=== PATIENT | female | born 1955 | race Caucasian/White ===

== ENCOUNTER 2022-09-03 07:22 | Outpatient (CLI) | payer MEDICARE, OTHER ==
[2022-09-03 15:15] LABS: ALBUMIN/GLOBULIN RATIO 1.3 (1.0-2.2); BILIRUBIN,TOTAL 0.4 mg/dL (0.2-1.0); CALCIUM 9.4 mg/dL (8.5-10.3); CREATININE 0.6 mg/dL (0.4-1.0); POTASSIUM 3.9 mmol/L (3.5-5.0)
[2022-09-03 21:23] LABS: ESTIMATED AVERAGE GLUCOSE 143 mg/dL (70-100); HEMOGLOBIN A1c% 6.6 % (4.27-6.07)
== END 2022-09-03 07:23 | disposition home or self-care (01) ==
LOC: LAB.S 07:22
PROVIDERS: ATTEND Nurse Practitioner
DX: E13.65 Other specified diabetes mellitus with hyperglycemia (principal); E13.59 Other specified diabetes mellitus with other circulatory complications; I15.2 Hypertension secondary to endocrine disorders; Z79.4 Long term (current) use of insulin
CPT/HCPCS: 36415; 80053; 83036

== ENCOUNTER 2022-12-11 07:19 | Outpatient (CLI) | payer MEDICARE, OTHER ==
[2022-12-11 15:37] LABS: ALBUMIN 4.1 g/dL (3.2-5.5); ALBUMIN/GLOBULIN RATIO 1.5 (1.0-2.2); BILIRUBIN,TOTAL 0.6 mg/dL (0.2-1.0); CALCIUM 9.6 mg/dL (8.5-10.3); CREATININE 0.6 mg/dL (0.6-1.3); POTASSIUM 4.1 mmol/L (3.5-4.5); TOTAL PROTEIN 6.8 g/dL (6.4-8.9)
[2022-12-11 21:31] LABS: ESTIMATED AVERAGE GLUCOSE 160 mg/dL (70-100); HEMOGLOBIN A1c% 7.2 % (4.27-6.07)
== END 2022-12-11 07:20 | disposition home or self-care (01) ==
LOC: LAB.S 07:19
PROVIDERS: ATTEND Internal Medicine Endocrinology, Diabetes & Metabolism
DX: E03.9 Hypothyroidism, unspecified (principal); E13.65 Other specified diabetes mellitus with hyperglycemia; Z79.4 Long term (current) use of insulin
CPT/HCPCS: 36415; 80053; 83036; 84439; 84443

== ENCOUNTER 2022-12-24 13:07 | Outpatient (CLI) | payer MEDICARE, OTHER ==
--- NOTE | 2023-01-01 09:36 | Mammography Report ---
BILATERAL DIGITAL SCREENING MAMMOGRAM 3D/2D: 12/24/2022 CLINICAL: Routine screening. No prior exams were available for comparison. There are scattered areas of fibroglandular density in both breasts (category b / 25%-50% glandular t issue). There are benign calcifications in both breasts. No significant masses, calcifications, or other findings are seen in either breast. IMPRESSION: BENIGN There is no mammographic evidence of malignancy. A 1 year screening mammogram is recommended. Based on the Tyrer Cuzick model (a risk assessment model) the patients lifetime risk is 6.5% and her 10 year risk is 3.4%. According to the ACR, ACS, and NCCN guidelines, an annual breast MRI exam elle g with mammogram is recommended if the patients lifetime risk is 20% or greater. This exam was interpreted at Station ID: [id number]. NOTE: For mammograms, a report in lay terms will be sent to the patient. Approximately 15% of breast malignancies will not be visualized mammographically. In the management of a palpable breast mass, a negative mammogram must not discourage biopsy of a clinically suspicious lesion. Electronically Signed By: Izabella blanco/taiwo:01/01/2023 09:29:56 letter sent: No_Letter ACR BI-RADS Category 2: Benign Finding(s) 3342F PARENCHYMAL PATTERN: (A) - The breast(s) demonstrate(s) scattered fibroglandular densities. BI-RADS CATEGORY: (2) - 2 Mammogram [id number] 1 year screening LATERALITY: (B)
== END 2022-12-24 13:08 | disposition home or self-care (01) ==
LOC: DI.S 13:07
PROVIDERS: ATTEND Internal Medicine
DX: Z12.31 Encounter for screening mammogram for malignant neoplasm of breast (principal)

== ENCOUNTER 2023-01-23 11:53 | Outpatient (CLI) | payer MEDICARE, OTHER ==
--- NOTE | 2023-01-23 14:29 | MRI Report ---
PROCEDURE: IAC'S W/WO INDICATIONS: CHANGE IN HEARING, BELLS PALSY CONTRAST: gadavist 10.7ml TECHNIQUE: Noncontrast sagittal T1 spin echo, axial FLAIR, axial gradient echo, axial diffusion and ADC through the brain. Axial thin-slice 3D CISS, coronal balanced GE, axial T1 spin echo with fat saturation thr ough the internal auditory canals. After the administration of contrast, thin slice axial and navarro l T1 spin echo with fat saturation through the internal auditory canals, and axial T1 spin echo with fat saturation through the brain. COMPARISON: None. FINDINGS: Image quality: Excellent. Cerebellopontine angles: In this patient with this given history, scrutiny is given to the courses of the facial nerves running within the parotid glands. This study, now masses or abnormal enhancement can be seen involving the facial nerves, including within the parotid glands. No masses or abnormal enhancement involving the internal auditory canals or the cerebellopontine angl e cisterns. CSF spaces: Ventricles are normal in size and shape. No extra-axial fluid collections. Basal ciste rns are patent. Brain: No intracranial bleeds or mass effects. Ortiz-white matter interface is intact. No abnormal intracranial enhancement. Diffusion weighted images demonstrate no acute ischemic insults. Brainste m appears normal. Normal intravascular flow voids are present. Skull and face: Calvarial marrow signal is normal. Orbits appear normal. Sinuses: Sinuses and mastoids are clear. IMPRESSION: No imaging explanation is found for the patient's presenting symptoms. No masses or abnormal enhancement can be seen. No findings of acute or subacute infarction are seen. Reviewed by: Eusebio Centeno MD on 01/23/2023 1:27 PM SKYLAR Approved by: Eusebio Centeno MD on 01/23/2023 1:27 PM SKYLAR Station ID: [id number]
== END 2023-01-23 11:54 | disposition home or self-care (01) ==
LOC: DI 11:53
PROVIDERS: ATTEND Internal Medicine
DX: R26.89 Other abnormalities of gait and mobility (principal); H91.91 Unspecified hearing loss, right ear; G51.0 Bell's palsy; E03.9 Hypothyroidism, unspecified; E13.65 Other specified diabetes mellitus with hyperglycemia; Z79.4 Long term (current) use of insulin
CPT/HCPCS: 36415; 70553; 80053; 83036; 84439; 84443; A9585

== ENCOUNTER 2023-01-23 11:54 | Outpatient (CLI) | payer MEDICARE, OTHER ==
[2023-01-23 12:27] LABS: ALBUMIN 4.3 g/dL (3.2-5.5); ALBUMIN/GLOBULIN RATIO 1.7 (1.0-2.2); BILIRUBIN,TOTAL 0.6 mg/dL (0.2-1.0); CALCIUM 10.1 mg/dL (8.5-10.3); CREATININE 0.6 mg/dL (0.6-1.3); POTASSIUM 4.1 mmol/L (3.5-4.5); TOTAL PROTEIN 6.9 g/dL (6.4-8.9)
[2023-01-23 12:57] LABS: ESTIMATED AVERAGE GLUCOSE 151 mg/dL (70-100); HEMOGLOBIN A1c% 6.9 % (4.27-6.07)
[2023-01-23 13:52] LABS: THYROID STIMULATING HORMONE 1.03 uIU/mL (0.34-5.60)
== END 2023-01-23 11:55 | disposition home or self-care (01) ==
LOC: LAB 11:54
PROVIDERS: ATTEND Internal Medicine Endocrinology, Diabetes & Metabolism
DX: E03.9 Hypothyroidism, unspecified (principal); E13.65 Other specified diabetes mellitus with hyperglycemia; Z79.4 Long term (current) use of insulin
CPT/HCPCS: 36415; 80053; 83036; 84439; 84443

== ENCOUNTER 2023-03-05 08:00 | Outpatient (CLI) | payer MEDICARE, OTHER ==
--- NOTE | 2023-03-05 17:58 | XRAY Report ---
PROCEDURE: Lumbar Spine 2 View INDICATIONS: LUMBAR RADICULOPATHY TECHNIQUE: 3 views of the lumbar spine were acquired. COMPARISON: None. FINDINGS: Bones: 5 [id number] vertebrae are present. No vertebral body compression fractures. No suspi cious bony lesions. Mild levoconvex scoliotic curvature is seen. There is minimal retrolisthesis seen at L1-L2 and L2-L3 . Moderate disc space narrowing can be seen at T12-L1, L1-L2, and L2-L3. There is moderate to severe di sc space narrowing at L5-S1. Endplate irregularity and sclerosis are seen, which are worst at the L5- S1 level. Facet arthropathy is seen, which is most prominent inferiorly. Soft tissues: Overlying bowel gas pattern is normal. No suspicious soft tissue calcifications. Cho lecystectomy clips are seen. IMPRESSION: Lumbar spine degenerative changes are seen, which are worst at L5-S1. If it would be helpful for clinical management decision making, please consider a dedicated, schedule d lumbar MRI for further evaluation (assuming that there is no contraindication). Reviewed by: Eusebio Centeno MD on 03/05/2023 4:57 PM SKYLAR Approved by: Eusebio Centeno MD on 03/05/2023 4:57 PM SKYLAR Station ID: [id number]
== END 2023-03-05 23:59 | disposition home or self-care (01) ==
LOC: DI.S 08:00
PROVIDERS: ATTEND Physician Assistant
DX: M47.26 Other spondylosis with radiculopathy, lumbar region (principal); M47.27 Other spondylosis with radiculopathy, lumbosacral region

== ENCOUNTER 2023-03-25 10:03 | Outpatient (CLI) | payer MEDICARE, OTHER ==
[2023-03-25 15:37] LABS: ALBUMIN 4.3 g/dL (3.2-5.5); ALBUMIN/GLOBULIN RATIO 1.6 (1.0-2.2); BILIRUBIN,TOTAL 0.7 mg/dL (0.2-1.0); CALCIUM 10.2 mg/dL (8.5-10.3); CREATININE 0.9 mg/dL (0.6-1.3); POTASSIUM 4.1 mmol/L (3.5-4.5)
[2023-03-25 15:50] LABS: ESTIMATED AVERAGE GLUCOSE 166 mg/dL (70-100); HEMOGLOBIN A1c% 7.4 % (4.27-6.07)
== END 2023-03-25 10:04 | disposition home or self-care (01) ==
LOC: LAB.S 10:03
PROVIDERS: ATTEND Nurse Practitioner
DX: E13.65 Other specified diabetes mellitus with hyperglycemia (principal); I15.2 Hypertension secondary to endocrine disorders; Z79.4 Long term (current) use of insulin
CPT/HCPCS: 36415; 80053; 82043; 83036

== ENCOUNTER 2023-05-06 07:00 | Outpatient (CLI) | payer MEDICARE, OTHER ==
--- NOTE | 2023-05-07 11:43 | XRAY Report ---
PROCEDURE: Shoulder 3 View LT INDICATIONS: INJURY TO LEFT SHOULDER TECHNIQUE: 4 views of the shoulder were acquired. COMPARISON: None. FINDINGS: Bones: Moderate to severe acromioclavicular and moderate glenohumeral degenerative changes. Enthesop athic changes at the greater tuberosity. No displaced fracture or dislocation. Soft tissues: No suspicious calcifications. IMPRESSION: Advanced degenerative changes. If there is high concern for further derangement, consider MRI evaluat ion. Reviewed by: Markell Combs MD on 05/07/2023 11:41 AM PST Approved by: Markell Combs MD on 05/07/2023 11:41 AM PST Station ID: [id number]
== END 2023-05-06 23:59 | disposition home or self-care (01) ==
LOC: DI.S 07:00
PROVIDERS: ATTEND Emergency Medicine
DX: M19.012 Primary osteoarthritis, left shoulder (principal)

== ENCOUNTER 2023-06-07 09:22 | Emergency (ER) | payer MEDICARE, OTHER ==
[2023-06-07] MEDS ORDERED: DROPERIDOL 5 MG/2 ML VIAL IM STA (11:19)
--- NOTE | 2023-06-07 11:26 | ED Physician Documentation ---
PD HPI BACK PAIN - Stated complaint Stated Complaint: BACK PX/NAUSEA - Chief complaint Chief Complaint: Back Pain - Additional information Additional information: 68 yo female here for severe back pain. Patient reports that she has been having severe back pain now for about a week she was seen at a walk-in clinic where she was started on prednisone taper for her back pain but also has type 2 diabetes and has been having issues with her blood sugars since initiation of prednisone. She also reports that she has had a history of sciatica flare this fall that feels very similar to this flare. She has had no trauma or falls she is not ab le to think of anything that triggered this flare a week ago. Yesterday she had an MRI for her chronic left shoulder pain and being on the MRI table she feels like this triggered the severity of the lower back pain and sciatica that she is feeling today. Pain shoots down her left leg and she feels like it is getting so severe to the point where she is having hard time sleeping. Denies any histor y of back surgery no history of IV drug use has not experienced any incontinence of bowel or bladder no fevers or chills at home. PD PAST MEDICAL HISTORY - Past Medical History Past Medical History: Yes Endocrine/Autoimmune: Type 2 diabetes Musculoskeletal: Chronic back pain - Past Surgical History Past Surgical History: Yes General: Cholecystectomy - Allergies Allergies/Adverse Reactions: Allergies Allergy/AdvReac Type Severity Reaction Status Date / Time Penicillins Allergy Hives Verified 06/07/23 09:48 - Social History Does the pt smoke?: No Smoking Status: Never smoker Does the pt drink ETOH?: No Does the pt have substance abuse?: No - Immunizations Immunizations are current?: Yes - POLST Patient has POLST: No PD ED PE NORMAL - Vitals Vital signs reviewed: Yes - General General: Alert and oriented X 3, Well developed/nourished, Other (obese) - HEENT HEENT: Atraumatic - Neck Neck: No bony TTP - Cardiac Cardiac: RRR, Strong equal pulses - Respiratory Respiratory: No respiratory distress, Clear bilaterally - Back Back: No CVA TTP, Other (The patient has equal and normal Achilles and patellar reflexes bilaterally. Normal sensation in all areas of the legs. Patient denies saddle anesthesia. 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 The patient has no "red flags." Specifically denies IV drug use, fevers, incontinence, saddle anesthesia. Spinal epidural abscess was considered, given that the patient has no fever, is not diabetic, has no spinal tenderness, does not use IV drugs, and has no bilateral neurologic symptoms, the diagnosis of spinal epidural abscess is considered exceedingly unlikely. Given the clinical picture, no indication for imaging at this time. Patient said that she was able to make an appointment with her primary care provider on Saturday for further evaluation and possible physical therapy referral for her ongoing lower back pain and sciatica. Her pain was improved with 1 IM dose of 0.625mg droperidol and one-time dose of 0.5mg IM Dilaudid. Departure - Departure Disposition: , Self Care Clinical Impression: Sciatic leg pain Back pain Qualifiers: Back pain location: low back pain Chronicity: acute Back pain laterality: left Sciatica presence: with sciatica Sciatica laterality: sciatica of left side Qualified Code(s): M54.42 - Lumbago with sciatica, left side Condition: Good Instructions: ED Sciatica Comments: Thank you for trusting is with your care. We have given you a one time dose of Droperidol and Dilaudid for your back pain. This will continue to work and improve over time. As we discussed going home make sure that you are continuing to ambulate walk around and do some gentle range of motion/stretches to your lower back to help with your sciatica pain. You can take at 1000 mg of Tylenol every 8 hours do not exceed 4 g of Tylenol in 24 hours. You can also take the muscle relaxers that you have at home 3 times a day as well for your back pain. Please follow-up with primary care provider for possible physical therapy referral for further evaluation of your sciatica pain. Please come back to the emergency department for starting to develop any fevers or chills, incontinence of urine or stool, or any other concerning symptoms. Discharge Date/Time: 06/07/23 12:26
[2023-06-07 12:14] VITALS: BP 176/72; O2SAT 96
[2023-06-07] MEDS ORDERED: HYDROmorphone 0.5 MG/0.5 ML SYRINGE IM STA (12:15)
== END 2023-06-07 12:26 | disposition home or self-care (01) ==
LOC: ED 09:22
DX: M54.42 Lumbago with sciatica, left side (principal); E11.9 Type 2 diabetes mellitus without complications
CPT/HCPCS: 96372; 99283; J1170

== ENCOUNTER 2023-06-09 19:28 | Emergency (ER) | payer MEDICARE, OTHER ==
[2023-06-09 19:51] VITALS: BP 152/71; O2SAT 97
[2023-06-09] MEDS ORDERED: GABAPENTIN 100 MG CAPSULE PO STA (19:55)
[2023-06-09] MEDS ORDERED: KETOROLAC 60 MG/2 ML VIAL IM STA (19:55)
[2023-06-09] MEDS ORDERED: HYDROmorphone 1 MG/ML CARPUJECT IM STA (19:55)
[2023-06-09] MEDS ORDERED: oxyCODONE/ACET 5/325 Prepack 4 PO STA (19:55)
--- NOTE | 2023-06-09 19:59 | ED Physician Documentation ---
PD HPI BACK PAIN - Stated complaint Stated Complaint: LOWER BACK PX - Chief complaint Chief Complaint: Back Pain - History obtained from History obtained from: Patient - Additional information Additional information: 60-year-old woman with diabetes and chronic shoulder pain has had a sciatica flare for the last 5 days that is severe. It got worse during an MRI of her shoulder a few days ago. She was seen in the clinic and given prednisone and subsequently Vicodin which have not been helpful. Then seen by my partner here few days ago and received a small dose of IM Dilaudid and droperidol which was only fleetingly helpful. Pain is in the right low back and radiates into the right thigh and groin. No incontinence, fevers, saddle anesthesia. PD PAST MEDICAL HISTORY - Past Medical History Past Medical History: Yes Neuro: Other Endocrine/Autoimmune: Type 2 diabetes Musculoskeletal: Chronic back pain Other Past Medical History: Sciatica - Past Surgical History Past Surgical History: Yes General: Cholecystectomy - Present Medications Home Medications: Ambulatory Orders Medication Instructions Recorded Confirmed Gabapentin [Neurontin] 300 mg PO TID #60 cap 06/09/23 Meloxicam [Mobic] 7.5 mg PO BID PRN #20 tablet 06/09/23 Oxycodone HCl/Acetaminophen 1 - 2 each PO Q6H PRN #14 tablet 06/09/23 [Percocet 5-325 mg Tablet] - Allergies Allergies/Adverse Reactions: Allergies Allergy/AdvReac Type Severity Reaction Status Date / Time Penicillins Allergy Hives Verified 06/09/23 19:38 - Social History Does the pt smoke?: No Smoking Status: Never smoker Does the pt drink ETOH?: No Does the pt have substance abuse?: No - Immunizations Immunizations are current?: Yes - POLST Patient has POLST: No PD ED PE NORMAL - Vitals Vital signs reviewed: Yes - General General: Alert and oriented X 3, No acute distress - Abdomen Abdomen: Normal bowel sounds, Soft, Non tender - Extremities Extremities: Other (The patient has equal and normal Achilles and patellar reflexes bilaterally. Normal sensation in all areas of the legs. Patient denies saddle anesthesia. Normal strength in flexion-extension at the ankles, knees, and flexion of the hips.) - Neuro Neuro: Alert and oriented X 3, Normal speech Results - Vitals Vitals: Vital Signs - 24 hr 06/09/23 19:33 Temperature 36.2 C L Heart Rate 81 Respiratory 16 Rate Blood Pressure 152/71 H O2 Saturation 97 Oxygen O2 Source Room air PD Medical Decision Making - ED course ED course: This patient has seemingly uncomplicated musculoskeletal back pain. The patient has no "red flags." Specifically denies IV drug use, fevers, incontinence, saddle anesthesia. Spinal epidural abscess was considered, given that the patient has no fever, has no spinal tenderness, does not use IV drugs, and has no bilateral neurologic symptoms, the diagnosis of spinal epidural abscess is considered exceedingly unlikely. In the emergency department treatment consisted of Dilaudid 2 mg IM, gabapentin 300 mg p.o., and Toradol 60 mg IM. She is already on steroids. Four Percocet to go. Her blood sugars have been good on the steroids. Departure - Departure Disposition: 01 Home, Self Care Clinical Impression: Sciatica Qualifiers: Laterality: right Qualified Code(s): M54.31 - Sciatica, right side Condition: Good Record reviewed to determine appropriate education?: Yes Instructions: ED Sciatica Prescriptions: Meloxicam [Mobic] 7.5 mg PO BID PRN #20 tablet PRN Reason: Pain Gabapentin [Neurontin] 300 mg PO TID #60 cap Oxycodone HCl/Acetaminophen [Percocet 5-325 mg Tablet] 1 - 2 each PO Q6H PRN #14 tablet PRN Reason: pain Comments: I sent your prescription electronically to the [facility] in [place]. Follow-up with your orthopedic surgeon as scheduled, he may want to refer you to one of his spinal colleagues. In the interim the oxycodone is stronger than the hydrocodone you have been taking. Also adding the gabapentin, and anti-inflamm atory. I am prescribing a short course of narcotic pain medication for you. These are potentially dangerous and addictive medications that should be used carefully. These medications may constipate you. Take an [id number] stool softener (docusate) twice daily with plenty of water while taking these medications. If you go 24 hours without a bowel movement, take [id number] miralax, per package instructions. Do not drink or drive while taking these medications. If you received narcotic or sedating medications while in the emergency department, do not drive for 24 hours. Store this medication in a safe, secure place and out of reach of children. It is a violation of federal law to give or sell this medication to another person or to use in a manner other than prescribed. The ED will not refill narcotic prescriptions, including prescriptions lost or stolen. To dispose of unwanted medications: 1. [facility] provides a drop box for medication in pill form only (no liquids) 8:00 am to 4:30 p.m. Saturday-Saturday in the lobby of the [facility], [address] [place] [address]. Empty pills into ziplock bag before disposal. Call [phone] for information. 2.[employer] is a free service available to all [facility] residents. Go to [email or web address]/ Note that many narcotic pain relievers also contain Tylenol/acetaminophen. Please ensure that your total dose of acetaminophen from all sources does not exceed 3 g (3000 mg) per day.
== END 2023-06-09 20:45 | disposition home or self-care (01) ==
LOC: ED 19:28
DX: M54.41 Lumbago with sciatica, right side (principal); E11.9 Type 2 diabetes mellitus without complications; Z79.899 Other long term (current) drug therapy
CPT/HCPCS: 96372; 99283; A9270; J1170

== ENCOUNTER 2023-06-10 05:56 | Emergency (ER) | payer MEDICARE, OTHER ==
[2023-06-10] MEDS ORDERED: HYDROmorphone 1 MG/ML CARPUJECT IVP STA ×4 (06:24→10:13)
[2023-06-10] MEDS ORDERED: ONDANSETRON 4 MG/2 ML VIAL IVP STA (06:24)
[2023-06-10] MEDS ORDERED: SODIUM CHLORIDE 0.9% 1,000 ML IV STA (06:24)
--- NOTE | 2023-06-10 06:29 | ED Physician Documentation ---
PD HPI BACK PAIN - Stated complaint Stated Complaint: LOWER BACK PX - Chief complaint Chief Complaint: Back Pain - History obtained from History obtained from: Patient, Family () - History of Present Illness Quality: Pain, Spasm, Sharp, Similar to prior episodes Associated symptoms: No: Fever, Weakness, Numbness, Incontinent of urine, Unable to urinate, Hematuria, Incontinent of stool Improves with: Rest, Position, Meds Worsened by: Movement, Other (laying is the worst) Contributing factors: Other (has a history of sciatica and type 2 diabetes on insulin) Similar symptoms before: Diagnosis (sciatica) Recently seen: Clinic, Emergency Dept - Additional information Additional information: Gia Goetz is a 68-year-old female who presents to the emergency department for the third visit for sciatica. She has had symptoms for 10 days and she has been in to see the clinic was started on a prednisone taper and despite that she has had progression of her pain. She was seen in the emergency department 3 days ago and again yesterday. She reports that she is getting very little relief from the narcotic pain relievers or any medications. She has the worst of her pain when she is laying down. She finds the most comfortable position to be in a wheelchair. She is able to walk has pain with ambulation as well. Her pain worsened after she had to lay on the MRI table for an MRI of her left shoulder 4 days ago. Since then she has been into the emergency department twice for a visit. She has been following her sugars closely as she is on some prednisone and she shows me her monitor showing a single spike for 1 to 2 hours of over 200. She has enough pain that she has not been able to get out of bed to get water. She indicates that she is not urinating much. Review of Systems Constitutional: denies: Fever Eyes: denies: Decreased vision Ears: denies: Ear pain Nose: denies: Rhinorrhea / runny nose, Congestion Throat: denies: Sore throat Cardiac: denies: Chest pain / pressure, Palpitations Respiratory: denies: Dyspnea, Cough GI: denies: Abdominal Pain, Nausea, Vomiting, Constipation, Diarrhea : denies: Dysuria, Frequency Skin: denies: Rash Musculoskeletal: reports: Back pain. denies: Neck pain, Extremity pain Neurologic: denies: Generalized weakness, Focal weakness, Numbness PD PAST MEDICAL HISTORY - Past Medical History Past Medical History: Yes Neuro: Other Endocrine/Autoimmune: Type 2 diabetes Musculoskeletal: Chronic back pain - Past Surgical History Past Surgical History: Yes General: Cholecystectomy - Present Medications Home Medications: Ambulatory Orders Medication Instructions Recorded Confirmed Acetaminophen [Tylenol] 1,000 mg PO Q6HR PRN 06/09/23 06/09/23 Gabapentin [Neurontin] 300 mg PO TID #60 cap 06/09/23 HYDROcod/ACETAM 5/325 [Fontana 5/325] 1 - 2 tablet PO Q8HR PRN 06/09/23 06/09/23 Meloxicam [Mobic] 7.5 mg PO BID PRN #20 tablet 06/09/23 Oxycodone HCl/Acetaminophen 1 - 2 each PO Q6H PRN #14 tablet 06/09/23 [Percocet 5-325 mg Tablet] predniSONE [Deltasone] tablet PO [id number] 06/09/23 - Allergies Allergies/Adverse Reactions: Allergies Allergy/AdvReac Type Severity Reaction Status Date / Time Penicillins Allergy Hives Verified 06/10/23 06:07 - Social History Does the pt smoke?: No Smoking Status: Never smoker Does the pt drink ETOH?: No Does the pt have substance abuse?: No - Immunizations Immunizations are current?: Yes - POLST Patient has POLST: No PD ED PE NORMAL - Vitals Vital signs reviewed: Yes (hypertensive ) - General General: Alert and oriented X 3, Well developed/nourished, Other (68 y/o female sitting in a wheelchair with a pillow over her abdomen is crying on arrival to the room. 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, No motor deficit, No sensory deficit, Normal speech Eye Opening: Spontaneous Motor: Obeys Commands Verbal: Oriented GCS Score: 15 - Psych Psych: Other (Mood is defeated and the affect is labile) Results - Vitals Vitals: Vital Signs - 24 hr 06/10/23 06:01 Temperature 36.4 C L Heart Rate 78 Respiratory 20 Rate Blood Pressure 179/79 H O2 Saturation 97 Oxygen O2 Source Room air Procedures - IVC sono (time) 0636 Bedside IVC sono: IVC measures (cm) (0.78), IVC collapsed c insp (cm) (complete), Significant dehydration (est 2-3 liter deficit) PD Medical Decision Making - ED course Complexity details: reviewed old records, reviewed results, re-evaluated patient, considered differential, d/w patient, d/w family ED course: This 68-year-old diabetic female has presented to the emergency department with sciatica and despite adequate treatment she is not having relief. I have encountered this clinical situation previously and I found dehydration to play a part in the nonresponse to treatment. I interrogated the IVC with POCUS and found the patient to be significantly dehydrated on the order of 2 to 3 L. I discussed with this with the patient and she is agreeable to placement of an IV and administration of fluids as a part of her treatment. At shift change care is turned over to Dr. Pate with labs pending and results of treatment pending.
[2023-06-10 07:22] LABS: BASOPHILS % (AUTO) 0.5 %; EOSINOPHILS # (AUTO) 0.2 10^3/uL (0.0-0.7); EOSINOPHILS % (AUTO) 2.7 %; HCT - HEMATOCRIT 40.8 % (37.0-47.0); HGB - HEMOGLOBIN 13.7 g/dL (12.0-16.0); LYMPHOCYTES # (AUTO) 2.6 10^3/uL (1.5-3.5); LYMPHOCYTES % (AUTO) 32.3 %; MEAN CORPUSCULAR HEMOGLOBIN 29.8 pg (27.0-31.0); MEAN CORPUSCULAR HGB CONC 33.6 g/dL (32.0-36.0); MEAN CORPUSCULAR VOLUME 88.9 fL (81.0-99.0); MEAN PLATELET VOLUME 10.2 fL (7.9-10.8); MONOCYTES # (AUTO) 0.7 10^3/uL (0.0-1.0); MONOCYTES % (AUTO) 8.9 %; NEUTROPHILS # (AUTO) 4.4 10^3/uL (1.5-6.6); NEUTROPHILS % (AUTO) 55.2 %; PLT - PLATELET COUNT 260 10^3/uL (130-450); RED BLOOD COUNT 4.59 10^6/uL (4.20-5.40); RED CELL DISTRIBUTION WIDTH 12.8 % (12.0-15.0); WHITE BLOOD COUNT 7.9 x10^3/uL (4.8-10.8)
[2023-06-10 07:25] LABS: ALBUMIN 4.1 g/dL (3.2-5.5); ALBUMIN/GLOBULIN RATIO 1.9 (1.0-2.2); BILIRUBIN,TOTAL 0.7 mg/dL (0.2-1.0); CREATININE 0.5 mg/dL (0.6-1.3); POTASSIUM 3.3 mmol/L (3.5-4.5); TOTAL PROTEIN 6.3 g/dL (6.4-8.9)
[2023-06-10] MEDS ORDERED: KETOROLAC 15 MG/ML VIAL IVP STA (07:34)
[2023-06-10] MEDS ORDERED: DEXAMETHASONE 10 MG/ML VIAL IVP STA (07:34)
--- NOTE | 2023-06-10 07:57 | ED Physician Documentation ---
ED Addendum - Addendum Addendum: 06/10/23 07:54 The patient states she had gone to a scrapbooking workshop last week with some pain in her back at that time from lifting and bending over. Seen in urgent care walk-in and prescribed prednisone and Robaxin. She is 1 more day on the prednisone before done. She had an MRI of the shoulder this past week and the laying down because the back to be hurting more as well. She has pain radiating down her right leg but no numbness or weakness. No incontinence more than her baseline stress incontinence. No retention. No fever or chills. It has been a week and a half now for her back hurting. We did discuss the idea of an MRI. Initially there would not have been indications for 1 based on her degree of symptoms. However given the duration of it now, there could be consideration. No doubt she has some nerve impingement given the area and radiation of the pain. No caudal symptoms per se. The patient states she hurts quite a bit for laying flat at this point. Shared decision is to forego imaging as its likely to just cause more pain and she does not think she would tolerate the position at this time. I do not feel it is emergently or urgently needed but consideration for 1 to better evaluate the lower back. We will add some anti-inflammatory with Toradol and Decadron as well as another dose of hydromorphone at this time. She has been getting IV fluids and is almost done with those. Prescriptions for gabapentin and oral opioids were sent to the pharmacy last evening on her visit at that time. I would continue the steroids a bit longer so we will write a prescription to continue those. She states she still has muscle relaxants at home. 06/10/23 12:21 Repeated doses of medications here provided incremental improvement. I did change from opiates of hydromorphone to ketamine dose given as an infusion. She states that provided better improvement in her pain. It still moderate level but she is a bit more mobile. We did have a discussion that her pain would not be gone at this point but need to make it into a tolerable level. I would extend her steroids and add lidocaine patch. She already has muscle relaxants and pain medicines prescribed. Disposition: The patient discharged home in stable condition. Diagnoses: 1. Severe low back pain 2. Sciatic symptoms
[2023-06-10] MEDS ORDERED: SODIUM CHLORIDE 0.9% IV STA (08:27)
[2023-06-10] MEDS ORDERED: KETAMINE IV STA (08:27)
[2023-06-10 08:58] VITALS: O2SAT 95
[2023-06-10] MEDS ORDERED: methocarbamoL 500 MG TABLET PO STA (10:13)
[2023-06-10 10:14] LABS: BILIRUBIN,URINE NEGATIVE (NEGATIVE); GLUCOSE, URINE (UA) NEGATIVE (NEGATIVE); KETONES,URINE (UA) 15 mg/dL (NEGATIVE); LEUKOCYTE ESTERASE, URINE NEGATIVE (NEGATIVE); NITRITE,URINE POSITIVE (NEGATIVE); OCCULT BLOOD,URINE NEGATIVE (NEGATIVE); PROTEIN,URINE NEGATIVE (NEGATIVE); UROBILINOGEN,URINE 0.2 (NORMAL) E.U./dL (NORMAL)
[2023-06-10 10:15] LABS: CLARITY,URINE SL. CLOUDY (CLEAR)
[2023-06-10 10:29] LABS: BACTERIA,URINE Many /HPF (None Seen); RBC,URINE 0-5 /HPF (0-5); SQUAMOUS EPITHELIAL CELL,UR FEW Squamous (<= Few)
[2023-06-10] MEDS: KETAMINE (50MG/ML) 40 MG in SODIUM CHLORIDE 0.9% 100ML 100 ML IV SCH ×2 (12:26→13:21)
[2023-06-10 13:21] VITALS: BP 162/72
== END 2023-06-10 13:51 | disposition home or self-care (01) ==
LOC: ED 05:56
DX: M54.41 Lumbago with sciatica, right side (principal); E86.0 Dehydration; E11.9 Type 2 diabetes mellitus without complications; Z79.4 Long term (current) use of insulin
CPT/HCPCS: 36415; 80053; 81001; 83690; 85025; 87086; 87181; 96361; 96365; 96375; 96376; 99284; 99285; A9270; J1170; 81003

== ENCOUNTER 2023-07-09 14:18 | Outpatient (CLI) | payer MEDICARE, OTHER ==
--- NOTE | 2023-07-09 17:33 | MRI Report ---
PROCEDURE: Lumbar Spine WO INDICATIONS: RIGHT SIDED LOW BACK PAIN WITH SCIATICA TECHNIQUE: Noncontrast sagittal T1 spin echo and T2 fast echo, sagittal STIR, axial T1 and T2 fast spin echo thr ough the lumbar spine. In cases with scoliosis, additional coronal T2 fast spin echo may be performe d. COMPARISON: None. FINDINGS: Image quality: Excellent. Alignment and Curvature: There is trace retrolisthesis of L1 on L2, L2 on L3. Mild leftward scolioti c curvature is present with apex at L2-3. Bone Marrow: Marrow is of normal overall signal. Mild reactive endplate changes are present at L4-5 , L5-S1 and to a lesser degree L1-L2 and L2-3. No acute vertebral body compression fractures. Spinal Cord: Conus medullaris terminates at the L1 level. Visualized cord demonstrates normal signa l and size. Paraspinous Soft Tissues: No paravertebral masses. Discs Multilevel moderate disc desiccation. T12-L1: No disc bulge, spinal stenosis or foraminal narrowing. L1-L2: No disc bulge, spinal stenosis or foraminal narrowing. L2-L3: Mild disc bulge without spinal stenosis. Mild right and [id number] left foraminal jenny rowing with facet and ligamentum flavum hypertrophy. L3-L4: Mild disc bulge with minimal spinal stenosis. Mild bilateral foraminal narrowing with facet and ligamentum flavum hypertrophy. L4-L5: Mild disc bulge with mild to moderate spinal stenosis. Moderate to severe right and mild to moderate left foraminal narrowing with mild compression of the exiting right L4 nerve roots. Facet an d ligamentum flavum hypertrophy are present. L5-S1: Mild disc bulge including a left foraminal component. Severe left foraminal narrowing with f acet and ligamentum flavum hypertrophy. Mild compression of the exiting left L5 nerve roots. IMPRESSION: Multilevel disc bulges. 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 Multilevel foraminal narrowing most severe at L4-5 and L5-S1 with mild compression of the exiting lef t L4 and L5 nerve root secondary to facet/ligament of flavum arthropathy. Reviewed by: Bonny Cutler MD on 07/09/2023 5:32 PM PST Approved by: Bonny Cutler MD on 07/09/2023 5:32 PM PST Station ID: [id number]
== END 2023-07-09 14:19 | disposition home or self-care (01) ==
LOC: DI 14:18
DX: M54.31 Sciatica, right side (principal); M51.36 Other intervertebral disc degeneration, lumbar region; M48.061 Spinal stenosis, lumbar region without neurogenic claudication; M51.37 Other intervertebral disc degeneration, lumbosacral region; M48.07 Spinal stenosis, lumbosacral region; M47.26 Other spondylosis with radiculopathy, lumbar region; M47.27 Other spondylosis with radiculopathy, lumbosacral region

== ENCOUNTER 2023-07-17 08:44 | Outpatient (CLI) | payer MEDICARE, OTHER ==
[2023-07-17 17:07] LABS: CHOL/HDL RATIO 2.1 (<4.4); CHOLESTEROL 120 mg/dL; GLUCOSE,FASTING 111 mg/dL (74-104); HDL CHOLESTEROL 58 mg/dL; LDL CHOLESTEROL,CALCULATED 44 mg/dL; LDL/HDL RATIO 0.8 (<4.4); TRIGLYCERIDES 92 mg/dL (48-352); VLDL CHOLESTEROL 18 mg/dL
== END 2023-07-17 08:45 | disposition home or self-care (01) ==
LOC: LAB.S 08:44
DX: E11.65 Type 2 diabetes mellitus with hyperglycemia (principal); Z79.4 Long term (current) use of insulin
CPT/HCPCS: 36415; 80061; 82947; 83721

== ENCOUNTER 2023-12-25 06:26 | Day surgery (SDC) | payer MEDICARE, OTHER ==
[2023-12-25] MEDS: LACTATED RINGERS 1,000 ML IV ONE (06:32)
--- NOTE | 2023-12-25 07:17 | ANESTHESIA ---
Pre-Anesthesia VS, & Labs - Diagnosis screening - Procedure colonoscopy Height: 5 ft Weight (kg): 109.2 kg Body Mass Index: 47.0 BMI Classification: Morbidly Obese - NPO >8 hours Last Fluid Intake: am prep - Is Patient ?: No - Lab Results Current Lab Results: Laboratory Tests 12/25/23 06:58: POC Whole Bld Glucose 167 H Lab results reviewed: Yes Home Medications and Allergies Home Medications: Ambulatory Orders Atorvastatin [Lipitor] 20 mg PO QPM 12/16/23 Insulin Aspart [Novolog] 100 unit SUBQ DAILY 12/16/23 Levothyroxine [Synthroid] 75 mcg PO QDAC 12/16/23 lisinopriL [Zestril] 5 mg PO DAILY 12/16/23 methocarbamoL [Methocarbamol] 1 - 3 tab PO Q6H PRN 12/16/23 Acetaminophen [Tylenol] 1,000 mg PO Q6HR PRN 06/09/23 Atorvastatin [Lipitor] 20 mg PO QPM 12/16/23 Insulin Aspart [Novolog] 100 unit SUBQ DAILY 12/16/23 Levothyroxine [Synthroid] 75 mcg PO QDAC 12/16/23 lisinopriL [Zestril] 5 mg PO DAILY 12/16/23 methocarbamoL [Methocarbamol] 1 - 3 tab PO Q6H PRN 12/16/23 Allergies/Adverse Reactions: Allergies Allergy/AdvReac Type Severity Reaction Status Date / Time Penicillins Allergy Hives Verified 06/10/23 06:07 Anes History & Medical History - Anesthetic History Anesthesia Complications: reports: No previous complications Family history of Anesthesia Complications: Denies Family history of Malignant Hyperthermia: Denies - Medical History Cardiovascular: reports: None Pulmonary: reports: Sleep apnea, CPAP use Gastrointestinal: reports: Colon polyps Urinary: reports: None Neuro: reports: Other Musculoskeletal: reports: Osteoarthritis, Chronic back pain Endocrine/Autoimmune: reports: Type 1 diabetes, Other Skin: reports: None Smoking Status: Never smoker Psychosocial: reports: No issues indicated History of Cancer?: No - Surgical History General: reports: Cholecystectomy, Colonoscopy, Other (2/3 of pancreas removed at 35years old d/t cyst) Eyes Ears Nose Throat (EENT): reports: Cataracts Urologic: reports: Bladder surgery Exam General: Alert, Oriented x3, Cooperative Dental: WNL Mouth Openin Fingerbreadth Neck Mobility: Normal Mallampati classification: II Thyromental Distance: 4-6 cm Respiratory: Lungs clear, Normal breath sounds, No respiratory distress Cardiovascular: Regular rate Neurological: Normal speech Mental/Cognitive Status: Alert/Oriented X3, Normal for patient Plan Anesthesia Type: Total IV Consent for Procedure(s) Verified and Reviewed: Yes Code Status: Attempt Resuscitation ASA classification: 3-Severe systemic disease Is this case an emergency?: No
[2023-12-25] MEDS ORDERED: PROPOFOL 500 MG/50 ML 500 MG/50 ML VIAL ONE (07:37)
[2023-12-25] MEDS ORDERED: LIDOCAINE-MPF 2% 5 ML VIAL ONE (07:37)
[2023-12-25] MEDS: LACTATED RINGERS 750 ML IV ONE (08:03)
--- NOTE | 2023-12-25 08:20 | ANESTHESIA POST OP EVALUATION ---
Anesthesia Post Eval - Post Anesthesia Eval Vitals: Last Vital Signs Temp 36.2 C L 12/25/23 08:05 Pulse 82 12/25/23 08:14 Resp 18 12/25/23 08:14 BP 104/65 12/25/23 08:14 Pulse Ox 96 12/25/23 08:14 O2 Flow Rate CV Function Including HR & BP: Stable Pain Control: Satisfactory Nausea & Vomiting: Negative Mental Status: Baseline Respiratory Status: Airway Patent Hydration Status: Satisfactory Anesthesia Complications: None
[2023-12-25 08:31] VITALS: BP 124/72; O2SAT 96
== END 2023-12-25 06:27 | disposition home or self-care (01) ==
LOC: SDS 06:26
PROVIDERS: ATTEND Surgery
PROC: 0DBL8ZZ Excision of Transverse Colon, Via Natural or Artificial Opening Endoscopic (ICD-10-PCS; 2023-12-25)
PROC: 0DBN8ZZ Excision of Sigmoid Colon, Via Natural or Artificial Opening Endoscopic (ICD-10-PCS; principal; 2023-12-25 07:30)
DX: Z12.11 Encounter for screening for malignant neoplasm of colon (principal); D12.3 Benign neoplasm of transverse colon; D12.5 Benign neoplasm of sigmoid colon; Z79.4 Long term (current) use of insulin; I10 Essential (primary) hypertension; E03.9 Hypothyroidism, unspecified; Z79.85 Long-term (current) use of injectable non-insulin antidiabetic drugs; E66.01 Morbid (severe) obesity due to excess calories; Z68.42 Body mass index [BMI] 45.0-49.9, adult; E10.9 Type 1 diabetes mellitus without complications
CPT/HCPCS: 45380; J7120

== ENCOUNTER 2024-02-12 10:28 | Outpatient (CLI) | payer MEDICARE, OTHER ==
[2024-02-12 14:47] LABS: BILIRUBIN,URINE NEGATIVE (NEGATIVE); GLUCOSE, URINE (UA) NEGATIVE (NEGATIVE); KETONES,URINE (UA) NEGATIVE (NEGATIVE); LEUKOCYTE ESTERASE, URINE NEGATIVE (NEGATIVE); NITRITE,URINE POSITIVE (NEGATIVE); OCCULT BLOOD,URINE NEGATIVE (NEGATIVE); PROTEIN,URINE NEGATIVE (NEGATIVE); UROBILINOGEN,URINE 0.2 (NORMAL) E.U./dL (NORMAL)
[2024-02-12 14:49] LABS: CLARITY,URINE HAZY (CLEAR)
[2024-02-12 15:16] LABS: BACTERIA,URINE Many /HPF (None Seen); RBC,URINE 0-5 /HPF (0-5); SQUAMOUS EPITHELIAL CELL,UR FEW Squamous (<= Few)
== END 2024-02-12 10:29 | disposition home or self-care (01) ==
LOC: LAB.S 10:28
DX: R39.89 Other symptoms and signs involving the genitourinary system (principal)
CPT/HCPCS: 81001; 87086